=== PATIENT | female | born 1950 | race Caucasian/White ===

== ENCOUNTER → 2017-09-10 | Outpatient (CLI) | payer OTHER | END | disposition home or self-care (01) | LOC: KCIC US 09:43 | DX: Z12.31 Encounter for screening mammogram for malignant neoplasm of breast (principal); K29.50 Unspecified chronic gastritis without bleeding; I70.0 Atherosclerosis of aorta | CPT/HCPCS: 76700; 77063; 77067 ==

== ENCOUNTER → 2017-09-26 | Outpatient (CLI) | payer OTHER | END | disposition home or self-care (01) | LOC: KCIC US 13:29 | DX: N63.10 Unspecified lump in the right breast, unspecified quadrant (principal) | CPT/HCPCS: 76641 ==

== ENCOUNTER → 2018-09-11 | Outpatient (CLI) | payer OTHER ==
[2015-08-27 14:32] VITALS: BP 116/85
--- NOTE | 2018-09-11 09:48 | KCIC ---
Bilateral digital diagnostic mammogram and tomosynthesis History: Follow-up of probably benign right breast nodules only seen mammographically. Bilateral standard and implant displaced digital CC and MLO views were obtained with mammography and tomosynthesis. Computer aided detection was utilized with iCAD Second Look 7.2-H. Previous: Mammogram September 2017 and priors. The breast tissue is heterogeneously dense, which could obscure detection of small masses (Level 3 density). There are no suspicious masses, suspicious microcalcifications or areas of architectural distortion. Bilateral subglandular saline implants again demonstrated. Benign calcifications. At the right retroareolar breast posterior depth anterior of the implant there are 3 adjacent subcentimeter oval circumscribed nodules which are stable one of which demonstrates a fatty center consistent with a lymph node, all 3 are suspected to represent lymph nodes. IMPRESSION: No suspicious mammographic abnormality. Small right breast nodules, likely intramammary lymph nodes, stable from the study from one year ago, remain probably benign. Attention on follow up mammography in one year is advised to document 2 years of stability to confirm benignity. Patient information was entered into the [employer] reminder system with a target due date for the next screening mammogram. BI-RADS Category 3: Probably benign. Your mammogram demonstrates that you have dense breast tissue, which could hide abnormalities, and if you have other risk factors for breast cancer that have been identified, you might benefit from supplemental screening tests that may be suggested by your ordering physician. Dense breast tissue, in and of itself, is a relatively common condition. This information is not provided to cause undue concern, but rather to raise your awareness and to promote discussion with your physician regarding the presence of other risk factors, in addition to dense breast tissue. A report of your mammography results will be sent to you and your physician. You should contact your physician if you have any questions or concerns regarding this report. A mammogram does not have 100% sensitivity and therefore a negative imaging study should not delay further work up of a suspicious abnormality. "Our facility is accredited by the [employer] Mammography Program." Electronically signed by: Dillan Littlejohn MD (09/11/2018 9:46 AM) [id number]
--- NOTE | 2018-09-11 17:40 | KCIC ---
Indication: Postmenopausal screening for osteoporosis. COMPARISON: None available. Bone Density: -BMD: (g/cm2) - AP Spine Total (L1-L4).......... 1.230. - Total left Hip................. 0.891. T-Score: - AP Spine Total (L1-L4)......... 1.7. - Total left Hip................. -0.4. Z-Score: - AP Spine Total (L1-L4).......... 3.5. - Total left Hip................. 0.9. World Health Organization criteria for BMD interpretation classify patients as Normal (T-score at or above -1.0), Osteopenic (T-score between -1.0 and -2.5), or Osteoporotic (T-score at or below -2.5). Impression: 1. AP Spine Total L1-L4--- normal. 2. Total left Hip--- normal. Electronically signed by: Juan Moncada MD (09/11/2018 5:37 PM) [place] [id number]
== END | disposition home or self-care (01) ==
LOC: KCIC DEXA 08:42
DX: Z13.820 Encounter for screening for osteoporosis (principal); N63.10 Unspecified lump in the right breast, unspecified quadrant; Z78.0 Asymptomatic menopausal state; Z98.82 Breast implant status
CPT/HCPCS: 77066; 77080; G0279; 77062

== ENCOUNTER 2019-10-14 13:10 | Inpatient (IN) | payer MEDICARE, OTHER ==
[~2019-10-14] VITALS: Ht 157.5 cm; Wt 64.9 kg
--- NOTE | 2019-10-14 13:42 | PHYS DOC ---
Past Medical History Past Medical History: Asthma, COPD, Hypertension Past Surgical History: Other Additional Past Surgical Histo: benign tumor right wrist Smoking Status: Never Smoker Alcohol Use: Occasionally Drug Use: None General Adult EDM: Chief Complaint: COUGH HPI: HPI: 69-year-old female significant history of hypertension on losartan, non-oxygen dependent COPD, who presents for evaluation of 2 weeks of URI symptoms and dyspnea. Reports nonproductive cough and nasal congestion. No fevers chills. Associated dyspnea, worsened with exertion, but no chest pain. Review of Systems: Review of Systems: Gen: No fever, chills. Reports feeling generally unwell. Eyes: No blurred vision, diplopia. ENT: No sore throat. Reports congestion. CV: No CP, palpitations. Resp. Reports SOB, cough. GI: No abd pain, N/V. : No dysuria, hematuria. Neuro: No PAK, dizziness, weakness. MSK: No myalgia, arthralgia, back pain. Skin: No acute rash or lesion. Heart Score: Risk Factors: Risk Factors: DM, Current or recent (<one month) smoker, HTN, HLP, family history of CAD, obesity. Risk Scores: Score 0 - 3: 2.5% MACE over next 6 weeks - Discharge Home Score 4 - 6: 20.3% MACE over next 6 weeks - Admit for Clinical Observation Score 7 - 10: 72.7% MACE over next 6 weeks - Early Invasive Strategies Allergies: Allergies: Allergies Coded Allergies Type Severity Reaction Last Updated Verified Penicillins Allergy Intermediate 08/27/15 Yes Sulfa (Sulfonamide Antibiotics) Allergy Intermediate 08/27/15 Yes Physical Exam: PE: Gen: NAD. Head: NC/AT. Eyes: No scleral icterus. No conjunctival injection. ENT: MMM. Posterior OP clear. Neck: Supple. NT. CV: RRR. Peripheral pulses intact. Resp: Globally diminished aeration. Prolonged expiratory phase. Faint end expiratory wheezing. Abd: Soft. NT. ND. MSK: No peripheral cyanosis. No edema. No calf tenderness or asymmetry. Neuro: Awake and alert. Skin. Warm. Dry Psych: Appropriate mood & affect. EKG: EKG: EKG at 1323. Sinus rhythm. Heart rate 91. No STEMI. Interpreted by me. Radiology/Procedures: Radiology/Procedures: EXAM: Chest, single view. HISTORY: Shortness of air. COMPARISON: None. FINDINGS: A frontal view of the chest is obtained. There is no infiltrate, pleural effusion or pneumothorax. The heart is normal in size. IMPRESSION: No acute pulmonary finding. Electronically signed by: Katlin Ram MD (10/14/2019 2:07 PM) [id number] Course & Med Decision Making: Course & Med Decision Making Pertinent Labs and Imaging studies reviewed. (See chart for details) In summary, 69F with COPD, p/w acute SOA in the setting of 2 weeks of URI Sx. No known COVID contact. HDS. Pulse ox low 90s RA. Severely diminished globally with exp wheezing. Labs unrevealing. CXR clear. Received neb/solumedrol with some efficacy. Will admit. Rafael Disclaimer: Rafael Disclaimer: This electronic medical record was generated, in whole or in part, using a voice recognition dictation system. Departure Departure Impression: Primary Impression: COPD exacerbation Disposition: ADMITTED INPATIENT Admitting Physician: HORTENSIA (Beverley) Condition: STABLE Referrals: [facility]CEIV[facility] (PCP) Justicifation of Admission Dx: Justifications for Admission: Justification of Admission Dx: N/A OLGA PRECIADO DO Oct 14, 2019 13:42
[2019-10-14] MEDS ORDERED: methylPREDNISolone SOD SUCC PF 125 MG/2 ML VIAL. IV ONE (13:45)
[2019-10-14] MEDS ORDERED: IPRATRPIUM/ALBUTEROL 0.5/2.5MG 3 ML NEBU. NEB ONE (13:45)
[2019-10-14 13:56] LABS: BASO # 0.1 x10^3/uL (0.0-0.2); BASO % 1 % (0-3); EOS # 0.6 x10^3/uL (0.0-0.7); EOS % 8 % (0-3); HEMATOCRIT 42.8 % (36.0-47.0); HEMOGLOBIN 14.6 g/dL (12.0-15.5); LYMPH # 1.5 x10^3/uL (1.0-4.8); LYMPH % 18 % (24-48); MEAN CORPUSCULAR HEMOGLOBIN 31 pg (25-35); MEAN CORPUSCULAR HGB CONC 34 g/dL (31-37); MEAN CORPUSCULAR VOLUME 90 fL (79-100); MONO # 0.7 x10^3/uL (0.0-1.1); MONO % 9 % (0-9); NEUT # 5.4 x10^3/uL (1.8-7.7); NEUT % 64 % (31-73); PLATELET COUNT 361 x10^3/uL (140-400); RED BLOOD COUNT 4.73 x10^6/uL (3.50-5.40); RED CELL DISTRIBUTION WIDTH 12.9 % (11.5-14.5); WHITE BLOOD COUNT 8.5 x10^3/uL (4.0-11.0)
--- NOTE | 2019-10-14 14:09 | RAD ---
EXAM: Chest, single view. HISTORY: Shortness of air. COMPARISON: None. FINDINGS: A frontal view of the chest is obtained. There is no infiltrate, pleural effusion or pneumothorax. The heart is normal in size. IMPRESSION: No acute pulmonary finding. Electronically signed by: Katlin Ram MD (10/14/2019 2:07 PM) [id number]
[2019-10-14 14:15] LABS: CALCIUM 9.1 mg/dL (8.5-10.1); GFR 55.3; POTASSIUM 3.5 mmol/L (3.5-5.1)
[2019-10-14 14:20] LABS: ALBUMIN 3.7 g/dL (3.4-5.0); MAGNESIUM 1.9 mg/dL (1.8-2.4); TOTAL BILIRUBIN 0.3 mg/dL (0.2-1.0); TOTAL PROTEIN 7.5 g/dL (6.4-8.2)
[2019-10-14] MEDS ORDERED: hydrALAZINE 20 MG/ML VIAL. IVP ONE (14:45)
[2019-10-14] MEDS ORDERED: ONDANSETRON PF 4 MG/2 ML VIAL. IV PRN ×2 (15:15→15:30)
--- NOTE | 2019-10-14 15:20 | PDOC1 ---
History and Physical Date of Admission Date of Admission DATE: 10/14/19 TIME: 15:19 Identification/Chief Complaint Chief Complaint SOB Source Source: Patient History of Present Illness History of Present Illness Ms Agustin is a 69 yo F w/ PMHx non-oxygen dependent COPD, asthma, HTN who presents for evaluation cough and nasal congestion. No fevers chills. Associa ruiz dyspnea, worsened with exertion, but no chest pain. Has had shortness of breath, cough, and headache, worse on her right maxilla and frontal area for 3 weeks that has been progressive initially with clear nasal discharge and dry cough which has progressed to more thick white and now yellow discharge with wet cough. Her PCP has previously given her anoro and spiriva and recommended outpatient spirometry over the years. In fact, she takes some her 's inhalers and montelukast during allergy season with improvement most years and has not been previously hospitalized or intubated. Has no smoking history but has had chronic asthma and moderate-severe allergies, worse in the spring, she believes cottonwood allergies are the worst for her. She is having audible wheezing and conversational dyspnea with visible accessory respiratory muscle recruitment on examination. No COVID 19 exposures and she and her and daughter have been wearing masks and staying home during this pandemic. BP 231/99 in ED and she felt improved but still very dyspneic in ED after 1 hour nebulizer treatment. CXR reviewed with no acute abnormality. EKG Sinus rhythm. Heart rate 91. No STEMI. WBC 8, K 3.5, Mag 1.9. neg troponin. Admitted for further treatment of her respiratory distress. Past Medical History Cardiovascular: HTN Pulmonary: Asthma, COPD Past Surgical History Past Surgical History: Other (wrist surgery) Family History Family History: Asthma, Chronic Bronchitis, Hypertension Social History Smoke: No ALCOHOL: rare Drugs: None Current Problem List Problem List Problems Medical Problems: (1) COPD exacerbation Status: Acute Current Medications Current Medications Current Medications Albuterol/ Ipratropium (Duoneb) 3 ml 1X ONCE NEB Last administered on 10/14/19at 13:58; Start 10/14/19 at 13:45; Stop 10/14/19 at 13:57; Status DC Methylprednisolone Sodium Succinate (SOLU-Medrol 125MG VIAL) 125 mg 1X ONCE IV Last administered on 10/14/19at 14:08; Start 10/14/19 at 13:45; Stop 10/14/19 at 13:57; Status DC Hydralazine HCl (Apresoline Inj) 10 mg 1X ONCE IVP Last administered on 10/14/19at 14:49; Start 10/14/19 at 14:45; Stop 10/14/19 at 14:46; Status DC Ondansetron HCl (Zofran) 4 mg PRN Q8HRS PRN IV NAUSEA/VOMITING; Start 10/14/19 at 15:15; Stop 10/15/19 at 15:14 Allergies Allergies: Coded Allergies: Penicillins (Verified Allergy, Intermediate, 08/27/15) Sulfa (Sulfonamide Antibiotics) (Verified Allergy, Intermediate, 08/27/15) ROS General: YES: Fatigue, Malaise; No: Chills, Night Sweats, Appetite, Other PSYCHOLOGICAL ROS: No: Anxiety, Behavioral Disorder, Concentration difficultie, Decreased libido, Depression, Disorientation, Hallucinations, Hostility, Irri tablity, Memory difficulties, Mood Swings, Obsessive thoughts, Physical abuse, Sexual abuse, Sleep disturbances, Suicidal ideation, Other Eyes: No Blurry vision, No Decreased vision, No Double vision, No Dry eyes, No Excessive tearing, No Eye Pain, No Itchy Eyes, No Loss of vision, No Photophobia, No Scotomata, No Uses contacts, No Uses glasses, No Other HEENT: YES: Nasal congestion, Nasal discharge, Sinus pain; No: Heacaches, Visual Changes, Hearing change, Oral lesions, Sore Throat, Epistaxis, Sneezing, Snoring, Tinnitus, Vertigo, Vocal changes, Other ALLERGY AND IMMUNOLOGY: YES: Itchy/Watery Eyes, Nasal Congestion, Post Nasal Drip, Seasonal Allergies; No: Hives, Insect Bite Sensitivity, Other Hematological and Lymphatic: No: Bleeding Problems, Blood Clots, Blood Transfusions, Brusing, Night Sweats, Pallor, Swollen Lymph Nodes, Other ENDOCRINE: No: Breast Changes, Galactorrhea, Hair Pattern Changes, Hot Flashes, Malaise/lethargy, Mood Swings, Palpitations, Polydipsia/polyuria, Skin Changes, Temperature Intolerance, Unexpected Weight Changes, Other Breast: No New/Changing Breast Lumps, No Nipple changes, No Nipple discharge, No Other Respiratory: YES: Cough, Shortness of breath, SOB with excertion, Sputum Changes, Tachypnea, Wheezing; No: Hemoptysis, Orthopnea, Pleuritic Pain, Stridor, Other Cardiovascular: No Chest Pain, No Palpitations, No Orthopnea, No Paroxysmal Noc. Dyspnea, No Edema, No Lt Headedness, No Other Gastrointestinal: No Nausea, No Vomiting, No Abdominal Pain, No Diarrhea, No Constipation, No Melena, No Hematochezia, No Other Genitourinary: No Dysuria, No Frequency, No Incontinence, No Hematuria, No Retention, No Discharge, No Urgency, No Pain, No Flank Pain, No Other, No , No , No , No , No , No , No Musculoskeletal: No Gait Disturbance, No Joint Pain, No Joint Stiffness, No Joint Swelling, No Muscle Pain, No Muscular Weakness, No Pain In:, No Swelling In:, No Other Neurological: No Behavorial Changes, No Bowel/Bladder ControlChng, No Confusion, No Dizziness, No Gait Disturbance, No Headaches, No Impaired Coord/balance, No Memory Loss, No Numbness/Tingling, No Seizures, No Speech Problems, No Tremors, No Visual Changes, No Weakness, No Other Skin: No Dry Skin, No Eczema, No Hair Changes, No Lumps, No Mole Changes, No Mottling, No Nail Changes, No Pruritus, No Rash, No Skin Lesion Changes, No Other, No Acne Physical Exam General: Alert, Oriented X3, Cooperative, moderate distress HEENT: Atraumatic, PERRLA, EOMI, Mucous membr. moist/pink Lungs: Other (Diffuse wheezing, prolonged expiratory phase) Heart: S1S2, RRR, no thrills, no rubs, no gallops, no murmurs Abdomen: Normal bowel sounds, Soft, No tenderness, No hepatosplenomegaly, No masses Rectal Exam: not examined Extremities: No clubbing, No cyanosis, No edema, Normal pulses, No tenderness/swelling Skin: No rashes, No breakdown, No significant lesion Neuro: Normal gait, Normal speech, Strength at 5/5 X4 ext, Normal tone, Sensation intact, Cranial nerves 3-12 NL, Reflexes 2+ Psych/Mental Status: Mental status NL, Mood NL Vitals Vitals Vital Signs Date Time Temp Pulse Resp B/P (MAP) Pulse Ox O2 Delivery O2 Flow Rate FiO2 10/14/19 14:49 77 212/82 10/14/19 13:58 96 Room Air 10/14/19 13:15 98.9 14 98.9 Labs Labs Laboratory Tests Test 10/14/19 13:30 White Blood Count 8.5 x10^3/uL (4.0-11.0) Red Blood Count 4.73 x10^6/uL (3.50-5.40) Hemoglobin 14.6 g/dL (12.0-15.5) Hematocrit 42.8 % (36.0-47.0) Mean Corpuscular Volume 90 fL (79-100) Mean Corpuscular Hemoglobin 31 pg (25-35) Mean Corpuscular Hemoglobin Concent 34 g/dL (31-37) Red Cell Distribution Width 12.9 % (11.5-14.5) Platelet Count 361 x10^3/uL (140-400) Neutrophils (%) (Auto) 64 % (31-73) Lymphocytes (%) (Auto) 18 % (24-48) Monocytes (%) (Auto) 9 % (0-9) Eosinophils (%) (Auto) 8 % (0-3) Basophils (%) (Auto) 1 % (0-3) Neutrophils # (Auto) 5.4 x10^3/uL (1.8-7.7) Lymphocytes # (Auto) 1.5 x10^3/uL (1.0-4.8) Monocytes # (Auto) 0.7 x10^3/uL (0.0-1.1) Eosinophils # (Auto) 0.6 x10^3/uL (0.0-0.7) Basophils # (Auto) 0.1 x10^3/uL (0.0-0.2) Sodium Level 141 mmol/L (136-145) Potassium Level 3.5 mmol/L (3.5-5.1) Chloride Level 101 mmol/L (98-107) Carbon Dioxide Level 31 mmol/L (21-32) Anion Gap 9 (6-14) Blood Urea Nitrogen 10 mg/dL (7-20) Creatinine 1.0 mg/dL (0.6-1.0) Estimated GFR (Cockcroft-Gault) 55.3 BUN/Creatinine Ratio 10 (6-20) Glucose Level 97 mg/dL (70-99) Calcium Level 9.1 mg/dL (8.5-10.1) Magnesium Level 1.9 mg/dL (1.8-2.4) Total Bilirubin 0.3 mg/dL (0.2-1.0) Aspartate Amino Transf (AST/SGOT) 31 U/L (15-37) Alanine Aminotransferase (ALT/SGPT) 28 U/L (14-59) Alkaline Phosphatase 96 U/L (46-116) Troponin I Quantitative < 0.017 ng/mL (0.000-0.055) ZG-Lbi-O-Type Natriuretic Peptide 697 pg/mL (0-124) Total Protein 7.5 g/dL (6.4-8.2) Albumin 3.7 g/dL (3.4-5.0) Albumin/Globulin Ratio 1.0 (1.0-1.7) Laboratory Tests Test 10/14/19 13:30 White Blood Count 8.5 x10^3/uL (4.0-11.0) Red Blood Count 4.73 x10^6/uL (3.50-5.40) Hemoglobin 14.6 g/dL (12.0-15.5) Hematocrit 42.8 % (36.0-47.0) Mean Corpuscular Volume 90 fL (79-100) Mean Corpuscular Hemoglobin 31 pg (25-35) Mean Corpuscular Hemoglobin Concent 34 g/dL (31-37) Red Cell Distribution Width 12.9 % (11.5-14.5) Platelet Count 361 x10^3/uL (140-400) Neutrophils (%) (Auto) 64 % (31-73) Lymphocytes (%) (Auto) 18 % (24-48) Monocytes (%) (Auto) 9 % (0-9) Eosinophils (%) (Auto) 8 % (0-3) Basophils (%) (Auto) 1 % (0-3) Neutrophils # (Auto) 5.4 x10^3/uL (1.8-7.7) Lymphocytes # (Auto) 1.5 x10^3/uL (1.0-4.8) Monocytes # (Auto) 0.7 x10^3/uL (0.0-1.1) Eosinophils # (Auto) 0.6 x10^3/uL (0.0-0.7) Basophils # (Auto) 0.1 x10^3/uL (0.0-0.2) Sodium Level 141 mmol/L (136-145) Potassium Level 3.5 mmol/L (3.5-5.1) Chloride Level 101 mmol/L (98-107) Carbon Dioxide Level 31 mmol/L (21-32) Anion Gap 9 (6-14) Blood Urea Nitrogen 10 mg/dL (7-20) Creatinine 1.0 mg/dL (0.6-1.0) Estimated GFR (Cockcroft-Gault) 55.3 BUN/Creatinine Ratio 10 (6-20) Glucose Level 97 mg/dL (70-99) Calcium Level 9.1 mg/dL (8.5-10.1) Magnesium Level 1.9 mg/dL (1.8-2.4) Total Bilirubin 0.3 mg/dL (0.2-1.0) Aspartate Amino Transf (AST/SGOT) 31 U/L (15-37) Alanine Aminotransferase (ALT/SGPT) 28 U/L (14-59) Alkaline Phosphatase 96 U/L (46-116) Troponin I Quantitative < 0.017 ng/mL (0.000-0.055) PL-Llh-L-Type Natriuretic Peptide 697 pg/mL (0-124) Total Protein 7.5 g/dL (6.4-8.2) Albumin 3.7 g/dL (3.4-5.0) Albumin/Globulin Ratio 1.0 (1.0-1.7) VTE Prophylaxis Ordered VTE Prophylaxis Devices: No VTE Pharmacological Prophylaxi: Yes Assessment/Plan Assessment/Plan A/P: Shortness of breath - asthma/copd exacerbation. Steroids, nebs, singulair. Consult pulm. No COVID 19 risk factors, afebrile Right maxillary sinusitis - on examination, will place on doxycycline, steroids, nasal rinse. Likely has secondary bronchitis associated failed outpatient treatment for allergies likely had viral sinusitis initially that progressed Hypertensive urgency - likely exacerbated by respiratory distress, will give prn hydralazine, cont home meds Allergic rhinitis - seasonal, will place on antihistamine and singulair, steroids FEN - General diet PPX - lovenox FULL CODE Dispo - inpatient 2 midnights. Justicifation of Admission Dx: Justifications for Admission: Justification of Admission Dx: Yes Respiratory Failure: Severe Resp Distress Acute COPD Exacerbation: Acute COPD Exacerbation Hypertension: Cresendo Worsening of Sym VANIA LOWRY MD Oct 14, 2019 15:20
[2019-10-14] MEDS ORDERED: ACETAMINOPHEN 325 MG TABLET. PO PRN (15:30)
[2019-10-14] MEDS ORDERED: ALBUTEROL SULFATE 2.5 MG/3 ML NEBU. NEB PRN (15:30)
[2019-10-14] MEDS ORDERED: MAGNESIUM SULFATE 1GM 100 ML IV ONE (16:00)
[2019-10-14 16:13] VITALS: BP 208/117
[2019-10-14] MEDS ORDERED: PARO40TA3 PO (17:20)
[2019-10-14] MEDS ORDERED: LOSA1TAB22 PO (17:20)
[2019-10-14] MEDS ORDERED: FAMO20TA5 PO (17:20)
[2019-10-14] MEDS ORDERED: OMEP20CA16 PO (17:20)
[2019-10-14] MEDS ORDERED: ATOR20TA58 PO (17:20)
[2019-10-14 17:31] VITALS: BP 168/66
[2019-10-14 19:40] VITALS: BP 174/83
[2019-10-14] MEDS: BUDESONIDE 0.5 MG/2 ML NEBU. NEB SCH (19:56)
[2019-10-14] MEDS: IPRATRPIUM/ALBUTEROL 0.5/2.5MG 3 ML NEBU. NEB SCH (19:56)
[2019-10-14] MEDS ORDERED: hydrALAZINE 20 MG/ML VIAL. IVP PRN (20:15)
[2019-10-14] MEDS ORDERED: SODIUM CHL/ALOE VERA NASAL GEL 14.1GM TUBE. NS PRN (20:15)
[2019-10-14] MEDS: FLUTICASONE 50MCG/NASAL SPRAY 16GM BOTTLE. NS SCH (21:30)
[2019-10-14] MEDS: DOXYCYCLINE HYCLATE 100 MG TABLET PO SCH (21:30)
[2019-10-14] MEDS: FAMOTIDINE 20 MG TABLET. PO SCH (21:30)
[2019-10-14] MEDS: ENOXAPARIN 40 MG/0.4 ML SYRINGE. SQ SCH (21:31)
[2019-10-14] MEDS: MONTELUKAST SODIUM 10 MG TABLET. PO SCH (21:32)
[2019-10-14] MEDS: CETIRIZINE HCL 10 MG TABLET. PO SCH (21:32)
[2019-10-14] MEDS: methylPREDNISolone SOD SUCC PF 40 MG/ML VIAL. IV SCH (21:33)
[2019-10-14] MEDS: ZOLPIDEM 5 MG TABLET. PO PRN (23:07)
[2019-10-14] MEDS: guaiFENesin ORAL 200 MG/10 ML LIQUID. PO PRN (23:10)
[2019-10-14 23:19] VITALS: BP 135/72
[2019-10-15] VITALS (7 sets, daily range): BP systolic 148–178; BP diastolic 58–84
[2019-10-15] MEDS: methylPREDNISolone SOD SUCC PF 40 MG/ML VIAL. IV SCH ×3 (06:04→22:00)
[2019-10-15] MEDS: IPRATRPIUM/ALBUTEROL 0.5/2.5MG 3 ML NEBU. NEB SCH ×4 (07:28→20:07)
[2019-10-15] MEDS: BUDESONIDE 0.5 MG/2 ML NEBU. NEB SCH ×2 (07:28→20:07)
--- NOTE | 2019-10-15 07:55 | EKG ---
[facility] [address] [place] [address] Test Date: 2019-10-14 Test Time: 13:23:01 Pat Name: JAMES CISNEROS Department: Room: [facility] Gender: F Issuer: : [id number] Requested By: VANIA LOWRY Order Number: [id number] Reading MD: Jose Simposn Measurements Intervals [place] Rate: 91 P: 150 SC: 124 QRS: 51 QRSD: 78 T: 19 QT: 376 QTc: 464 Interpretive Statements SINUS RHYTHM Electronically Signed On 10-16-2019 16:28:20 CDT by Jose Simpson
[2019-10-15] MEDS: FLUTICASONE 50MCG/NASAL SPRAY 16GM BOTTLE. NS SCH (09:29)
[2019-10-15] MEDS: PANTOPRAZOLE 40 MG TABLET.DR. PO SCH (09:30)
[2019-10-15] MEDS: CETIRIZINE HCL 10 MG TABLET. PO SCH (09:30)
[2019-10-15] MEDS: LOSARTAN POTASSIUM 50 MG TABLET. PO SCH (09:30)
[2019-10-15] MEDS: PARoxetine 20 MG TABLET PO SCH (09:31)
[2019-10-15] MEDS: DOXYCYCLINE HYCLATE 100 MG TABLET PO SCH ×2 (09:31→21:15)
[2019-10-15] MEDS: ATORVASTATIN CALCIUM 20 MG TABLET PO SCH (09:31)
--- NOTE | 2019-10-15 11:01 | CONS ---
DATE OF CONSULTATION: PULMONARY CONSULTATION ATTENDING PHYSICIAN: Low Lowery. REASON FOR CONSULTATION: Dyspnea. HISTORY OF PRESENT ILLNESS: The patient is a 69-year-old who has been a smoker for 30+ years. She quit in 2008. She is not on home oxygen. She presented to the hospital with 3 weeks' history of shortness of breath. She said she also started to have a cough with some white sputum production. No fever, no chills. No chest pains. No headaches, no nausea, vomiting, no diarrhea, no dysuria. She has no known history of pulmonary embolism or DVT. She said she started using her 's oxygen. Her chest x-ray did not reveal any acute infiltrates. I have been asked to see her for further evaluation. PAST MEDICAL HISTORY: History of hypertension and COPD, unknown FEV1. PAST SURGICAL HISTORY: Wrist surgery. FAMILY HISTORY: Asthma, chronic bronchitis and hypertension. SOCIAL HISTORY: Quit tobacco in 2008, but before that smoked for 30+ years. ALLERGIES: PENICILLIN AND SULFA. REVIEW OF SYSTEMS: Twelve-point system obtained. Pertinent positives discussed in my history of present illness, otherwise noncontributory. All systems that were negative were reviewed as well. MEDICATIONS: All reviewed as listed in the MRAD including IV Solu-Medrol, doxycycline, Lovenox for DVT prophylaxis and DuoNebs. PHYSICAL EXAMINATION: VITAL SIGNS: Reviewed. Blood pressure on the high side, afebrile, pulse ox 93% on room air. NECK: Supple. LUNGS: With faint expiratory wheezes. CARDIOVASCULAR: Regular rate. ABDOMEN: Soft, nontender. EXTREMITIES: With no pitting edema. LABORATORY DATA: Reviewed. White cell count 8.5, hemoglobin 14.6 and platelets are 361. BUN 10, creatinine 1.0. IMPRESSION: 1. Acute exacerbation of chronic obstructive pulmonary disease triggered by acute bronchitis. 2. Suspect underlying chronic obstructive pulmonary disease from 30+ years of tobaccoism. 3. Acute bronchitis with no definite consolidation seen on the chest x-ray. RECOMMENDATIONS: 1. We will continue with present DuoNebs. 2. IV Solu-Medrol. 3. Lovenox for DVT prophylaxis. 4. Continue Pulmicort. 5. Anticipate hospitalization for 24-48 hours once bronchospasm is resolved. 6. Would recommend PFTs as an outpatient. 7. Discussed with the patient's and will follow along with you. MADELAINE CAIN MD DR: TONO/rebekah JOB#: [id number] / [id number]
--- NOTE | 2019-10-15 11:37 | PDOC ---
[facility] [facility] PROGRESS NOTE Chief Complaint Chief Complaint Respiratory failure with COPD exacerbation History of Present Illness History of Present Illness 10/15/2019 Patient seen and examined She remains somewhat short of breath and wants to see pulmonary I discussed with Dr. Garcia he is going to see her this afternoon Vitals/I&O Vitals/I&O: Vital Signs Date Time Temp Pulse Resp B/P (MAP) Pulse Ox O2 Delivery O2 Flow Rate FiO2 10/15/19 11:21 95 Room Air 10/15/19 09:30 109 123/71 10/15/19 07:47 98.4 18 98.4 I & O 10/14/19 10/14/19 10/15/19 15:00 23:00 07:00 Intake Total 600 ml 200 ml Balance 600 ml 200 ml Physical Exam General: Alert, Oriented X3, Cooperative, moderate distress Abdomen: Normal bowel sounds, Soft, No tenderness, No hepatosplenomegaly, No masses Extremities: No clubbing, No cyanosis, No edema, Normal pulses, No tenderness/swelling Skin: No rashes, No breakdown, No significant lesion Labs Labs: Laboratory Tests Test 10/14/19 13:30 White Blood Count 8.5 x10^3/uL (4.0-11.0) Red Blood Count 4.73 x10^6/uL (3.50-5.40) Hemoglobin 14.6 g/dL (12.0-15.5) Hematocrit 42.8 % (36.0-47.0) Mean Corpuscular Volume 90 fL (79-100) Mean Corpuscular Hemoglobin 31 pg (25-35) Mean Corpuscular Hemoglobin Concent 34 g/dL (31-37) Red Cell Distribution Width 12.9 % (11.5-14.5) Platelet Count 361 x10^3/uL (140-400) Neutrophils (%) (Auto) 64 % (31-73) Lymphocytes (%) (Auto) 18 % (24-48) Monocytes (%) (Auto) 9 % (0-9) Eosinophils (%) (Auto) 8 % (0-3) Basophils (%) (Auto) 1 % (0-3) Neutrophils # (Auto) 5.4 x10^3/uL (1.8-7.7) Lymphocytes # (Auto) 1.5 x10^3/uL (1.0-4.8) Monocytes # (Auto) 0.7 x10^3/uL (0.0-1.1) Eosinophils # (Auto) 0.6 x10^3/uL (0.0-0.7) Basophils # (Auto) 0.1 x10^3/uL (0.0-0.2) Sodium Level 141 mmol/L (136-145) Potassium Level 3.5 mmol/L (3.5-5.1) Chloride Level 101 mmol/L (98-107) Carbon Dioxide Level 31 mmol/L (21-32) Anion Gap 9 (6-14) Blood Urea Nitrogen 10 mg/dL (7-20) Creatinine 1.0 mg/dL (0.6-1.0) Estimated GFR (Cockcroft-Gault) 55.3 BUN/Creatinine Ratio 10 (6-20) Glucose Level 97 mg/dL (70-99) Calcium Level 9.1 mg/dL (8.5-10.1) Magnesium Level 1.9 mg/dL (1.8-2.4) Total Bilirubin 0.3 mg/dL (0.2-1.0) Aspartate Amino Transf (AST/SGOT) 31 U/L (15-37) Alanine Aminotransferase (ALT/SGPT) 28 U/L (14-59) Alkaline Phosphatase 96 U/L (46-116) Troponin I Quantitative < 0.017 ng/mL (0.000-0.055) WF-Aww-W-Type Natriuretic Peptide 697 pg/mL (0-124) Total Protein 7.5 g/dL (6.4-8.2) Albumin 3.7 g/dL (3.4-5.0) Albumin/Globulin Ratio 1.0 (1.0-1.7) Assessment and Plan Assessmemt and Plan Problems Medical Problems: (1) COPD exacerbation Status: Acute Shortness of breath - asthma/copd exacerbation. Steroids, nebs, singulair. Consult pulm. No COVID 19 risk factors, afebrile Right maxillary sinusitis - on examination, will place on doxycycline, steroids, nasal rinse. Likely has secondary bronchitis associated failed outpatient treatment for allergies likely had viral sinusitis initially that progressed Hypertensive urgency - likely exacerbated by respiratory distress, will give prn hydralazine, cont home meds Allergic rhinitis - seasonal, will place on antihistamine and singulair, steroids Comment Review of Relevant I have reviewed the following items shari (where applicable) has been applied. Medications: Current Medications Medications (Trade) Dose Ordered Sig/Mingo Route PRN Reason Start Time Stop Time Status Last Admin Dose Admin Albuterol/ Ipratropium (Duoneb) 3 ml 1X ONCE NEB 10/14/19 13:45 10/14/19 13:57 DC 10/14/19 13:58 Methylprednisolone Sodium Succinate (SOLU-Medrol 125MG VIAL) 125 mg 1X ONCE IV 10/14/19 13:45 10/14/19 13:57 DC 10/14/19 14:08 Hydralazine HCl (Apresoline Inj) 10 mg 1X ONCE IVP 10/14/19 14:45 10/14/19 14:46 DC 10/14/19 14:49 Magnesium Sulfate/ Dextrose 100 ml @ 100 mls/hr 1X ONCE IV 10/14/19 16:00 10/14/19 16:59 DC 10/14/19 17:05 Acetaminophen (Tylenol) 650 mg PRN Q4HRS PRN PO TEMP OVER 100.4F OR MILD PAIN 10/14/19 15:30 10/14/19 23:10 Guaifenesin (Robitussin) 200 mg PRN Q4HRS PRN PO COUGH 10/14/19 15:30 10/14/19 23:10 Enoxaparin Sodium (Lovenox 40mg Syringe) 40 mg Q24H SQ 10/14/19 21:00 10/14/19 21:31 Atorvastatin Calcium (Lipitor) 20 mg DAILY PO 10/15/19 09:00 10/15/19 09:31 Famotidine (Pepcid) 20 mg HS PO 10/14/19 21:00 10/14/19 21:30 Losartan Potassium (Cozaar) 100 mg DAILY PO 10/15/19 09:00 10/15/19 09:30 Pantoprazole Sodium (Protonix) 40 mg DAILYAC PO 10/15/19 07:30 10/15/19 09:30 Paroxetine HCl (Paxil) 40 mg DAILY PO 10/15/19 09:00 10/15/19 09:31 Albuterol/ Ipratropium (Duoneb) 3 ml RTQID NEB 10/14/19 20:00 10/15/19 11:20 Montelukast Sodium (Singulair) 10 mg QHS PO 10/14/19 21:00 10/14/19 21:32 Budesonide (Pulmicort) 0.5 mg RTBID NEB 10/14/19 20:00 10/15/19 07:28 Methylprednisolone Sodium Succinate (SOLU-Medrol 40MG VIAL) 40 mg Q8HRS IV 10/14/19 22:00 10/15/19 06:04 Zolpidem Tartrate (Ambien) 5 mg PRN QHS PRN PO INSOMNIA 10/14/19 20:15 10/14/19 23:07 Doxycycline Hyclate (Vibra-Tab) 100 mg BID PO 10/14/19 21:00 10/15/19 09:31 Fluticasone Propionate (Flonase) 2 spray DAILY NS 10/14/19 20:15 10/15/19 09:29 Hydralazine HCl (Apresoline Inj) 10 mg PRN Q4HRS PRN IVP ELEVATED BP, SEE COMMENTS 10/14/19 20:15 10/15/19 08:02 Cetirizine HCl (ZyrTEC) 10 mg DAILY PO 10/14/19 20:45 10/15/19 09:30 Justicifation of Admission Dx: Justifications for Admission: Justification of Admission Dx: Yes Respiratory Failure: Severe Resp Distress Acute COPD Exacerbation: Acute COPD Exacerbation Hypertension: Cresendo Worsening of Sym HELENA MEI III DO Oct 15, 2019 11:36
[2019-10-15] MEDS: guaiFENesin ORAL 200 MG/10 ML LIQUID. PO PRN ×2 (12:26→19:59)
[2019-10-15] MEDS ORDERED: amLODIPine BESYLATE 5 MG TABLET PO SCH (13:15)
--- NOTE | 2019-10-15 14:01 | NUR ---
SW following for discharge planning. SW reviewed chart and spoke with RN. SW met with pt. Pt's adult dtr at bedside. Pt lives in [place] with spouse and plans to return at discharge. Pt has a dx of COPD but is on room air and 02 is not needed at this time. Pt has a nebulizer at home per her report. SW to continue following for discharge planning.
--- NOTE | 2019-10-15 20:00 | NUR ---
Amlodipine 5 mg x 1 scheduled for 1300 (?), not given until now, [facility] but this rn administered it.
[2019-10-15] MEDS: ENOXAPARIN 40 MG/0.4 ML SYRINGE. SQ SCH (21:15)
[2019-10-15] MEDS: FAMOTIDINE 20 MG TABLET. PO SCH (21:15)
[2019-10-15] MEDS: MONTELUKAST SODIUM 10 MG TABLET. PO SCH (21:15)
[2019-10-15] MEDS: LACTOBACILLUS RHAMNOSUS GG 1 CAPSULE. PO SCH (21:15)
[2019-10-15] MEDS: ZOLPIDEM 5 MG TABLET. PO PRN (22:00)
[2019-10-16 03:15] VITALS: BP 152/73
[2019-10-16] MEDS: methylPREDNISolone SOD SUCC PF 40 MG/ML VIAL. IV SCH (06:33)
[2019-10-16] MEDS: IPRATRPIUM/ALBUTEROL 0.5/2.5MG 3 ML NEBU. NEB SCH (07:14)
[2019-10-16] MEDS: BUDESONIDE 0.5 MG/2 ML NEBU. NEB SCH (07:14)
[2019-10-16] MEDS: guaiFENesin ORAL 200 MG/10 ML LIQUID. PO PRN (07:16)
[2019-10-16 07:34] VITALS: BP 166/75
[2019-10-16 08:06] VITALS: BP 166/75
[2019-10-16] MEDS: PANTOPRAZOLE 40 MG TABLET.DR. PO SCH (08:06)
[2019-10-16] MEDS: LACTOBACILLUS RHAMNOSUS GG 1 CAPSULE. PO SCH (08:06)
[2019-10-16] MEDS: LOSARTAN POTASSIUM 50 MG TABLET. PO SCH (08:06)
[2019-10-16] MEDS: PARoxetine 20 MG TABLET PO SCH (08:07)
[2019-10-16] MEDS: DOXYCYCLINE HYCLATE 100 MG TABLET PO SCH (08:07)
[2019-10-16] MEDS: ATORVASTATIN CALCIUM 20 MG TABLET PO SCH (08:07)
[2019-10-16] MEDS: FLUTICASONE 50MCG/NASAL SPRAY 16GM BOTTLE. NS SCH (08:07)
[2019-10-16] MEDS: CETIRIZINE HCL 10 MG TABLET. PO SCH (08:07)
--- NOTE | 2019-10-16 09:50 | PDOC ---
PULMONARY PROGRESS NOTES Subjective Pt. is feeling better today, Denies SOA or cough Vitals Vital Signs Date Time Temp Pulse Resp B/P (MAP) Pulse Ox O2 Delivery O2 Flow Rate FiO2 10/16/19 08:06 100 166/75 10/16/19 08:00 Room Air 10/16/19 07:34 97.6 18 92 97.6 ROS: No Nausea, No Chest Pain, No Abdominal Pain, No Increase Cough General: Alert, Oriented X4 Lungs: Clear Cardiovascular: S1, S2 Abdomen: Soft, Non-tender Neuro Exam: Alert, Oriented Extremities: No Edema Skin: Warm, Dry Labs Laboratory Tests Test 10/14/19 13:30 White Blood Count 8.5 x10^3/uL (4.0-11.0) Red Blood Count 4.73 x10^6/uL (3.50-5.40) Hemoglobin 14.6 g/dL (12.0-15.5) Hematocrit 42.8 % (36.0-47.0) Mean Corpuscular Volume 90 fL (79-100) Mean Corpuscular Hemoglobin 31 pg (25-35) Mean Corpuscular Hemoglobin Concent 34 g/dL (31-37) Red Cell Distribution Width 12.9 % (11.5-14.5) Platelet Count 361 x10^3/uL (140-400) Neutrophils (%) (Auto) 64 % (31-73) Lymphocytes (%) (Auto) 18 % (24-48) Monocytes (%) (Auto) 9 % (0-9) Eosinophils (%) (Auto) 8 % (0-3) Basophils (%) (Auto) 1 % (0-3) Neutrophils # (Auto) 5.4 x10^3/uL (1.8-7.7) Lymphocytes # (Auto) 1.5 x10^3/uL (1.0-4.8) Monocytes # (Auto) 0.7 x10^3/uL (0.0-1.1) Eosinophils # (Auto) 0.6 x10^3/uL (0.0-0.7) Basophils # (Auto) 0.1 x10^3/uL (0.0-0.2) Sodium Level 141 mmol/L (136-145) Potassium Level 3.5 mmol/L (3.5-5.1) Chloride Level 101 mmol/L (98-107) Carbon Dioxide Level 31 mmol/L (21-32) Anion Gap 9 (6-14) Blood Urea Nitrogen 10 mg/dL (7-20) Creatinine 1.0 mg/dL (0.6-1.0) Estimated GFR (Cockcroft-Gault) 55.3 BUN/Creatinine Ratio 10 (6-20) Glucose Level 97 mg/dL (70-99) Calcium Level 9.1 mg/dL (8.5-10.1) Magnesium Level 1.9 mg/dL (1.8-2.4) Total Bilirubin 0.3 mg/dL (0.2-1.0) Aspartate Amino Transf (AST/SGOT) 31 U/L (15-37) Alanine Aminotransferase (ALT/SGPT) 28 U/L (14-59) Alkaline Phosphatase 96 U/L (46-116) Troponin I Quantitative < 0.017 ng/mL (0.000-0.055) RP-[id number]-Type Natriuretic Peptide 697 pg/mL (0-124) Total Protein 7.5 g/dL (6.4-8.2) Albumin 3.7 g/dL (3.4-5.0) Albumin/Globulin Ratio 1.0 (1.0-1.7) Medications Active Scripts Medications Dose Route/Sig Max Daily Dose Days Date Category Omeprazole 20 Mg Capsule.dr 1 Cap PO DAILY 10/14/19 Reported Atorvastatin Calcium 20 Mg Tablet 1 Tab PO DAILY 10/14/19 Reported Paroxetine Hcl 40 Mg Tablet 1 Tab PO DAILY 10/14/19 Reported Famotidine 20 Mg Tablet 20 Mg PO HS 10/14/19 Reported Losartan-Hctz 100-25 Mg Tab (Losartan/Hydrochlorothiazide) 1 Each Tablet 1 Tab PO DAILY 10/14/19 Reported Comments CXR 10/14/2019 IMPRESSION: No acute pulmonary finding. Impression . IMPRESSION: 1. Acute exacerbation of chronic obstructive pulmonary disease triggered by acute bronchitis-- improved , wheezing resolved 2. Suspect underlying chronic obstructive pulmonary disease from 30+ years of tobaccoism- educate on cessation importance 3. Acute bronchitis with no definite consolidation seen on the chest x-ray. Plan . RECOMMENDATIONS: continue bronchodilators will D/C on combivent IV Solu-Medrol change to medrol -dose pack Lovenox for DVT prophylaxis. Continue Pulmicort. Would recommend PFTs as an outpatient has follow in office 12/16/2019 Ok to D/C home today if ok with other consults-- RX provided sent on Pablo as well MADELAINE CAIN MD Oct 16, 2019 09:50
--- NOTE | 2019-10-16 10:39 | PDOC ---
[employer] [facility] PROGRESS NOTE Chief Complaint Chief Complaint Respiratory failure with COPD exacerbation History of Present Illness History of Present Illness 10/16/2019 Patient seen and examined She seems to be at her baseline Discussed with her daughter Discussed with RN Chart reviewed Plan is discharge I left prescriptions 10/15/2019 Patient seen and examined She remains somewhat short of breath and wants to see pulmonary I discussed with Dr. Garcia he is going to see her this afternoon Vitals/I&O Vitals/I&O: Vital Signs Date Time Temp Pulse Resp B/P (MAP) Pulse Ox O2 Delivery O2 Flow Rate FiO2 10/16/19 08:06 100 166/75 10/16/19 08:00 Room Air 10/16/19 07:34 97.6 18 92 97.6 I & O 10/15/19 10/15/19 10/16/19 15:00 23:00 07:00 Intake Total 500 ml 700 ml 240 ml Balance 500 ml 700 ml 240 ml Physical Exam General: Alert, Oriented X3, Cooperative, moderate distress Lungs: Clear Abdomen: Normal bowel sounds, Soft, No tenderness, No hepatosplenomegaly, No masses Extremities: No clubbing, No cyanosis, No edema, Normal pulses, No tenderness/swelling Skin: No rashes, No breakdown, No significant lesion Assessment and Plan Assessmemt and Plan Problems Medical Problems: (1) COPD exacerbation Status: Acute Discharge Comment Review of Relevant I have reviewed the following items shari (where applicable) has been applied. Medications: Current Medications Medications (Trade) Dose Ordered Sig/Mingo Route PRN Reason Start Time Stop Time Status Last Admin Dose Admin Lactobacillus Rhamnosus (Culturelle) 1 cap BID PO 10/15/19 21:00 10/16/19 08:06 Justicifation of Admission Dx: Justifications for Admission: Justification of Admission Dx: Yes Respiratory Failure: Severe Resp Distress Acute COPD Exacerbation: Acute COPD Exacerbation Hypertension: Cresendo Worsening of Sym HELENA MEI III DO Oct 16, 2019 10:39
--- NOTE | 2019-10-16 11:00 | NUR ---
Discharge Note: JAMES [address]OS[address] [place] [address] Discharge instructions and discharge home medications reviewed with Patient and a copy given. All questions have been answered and understanding verbalized. The following instructions and handouts were given: discharge instructions, new prescriptions, education and follow up recommendations. Discontinued lines and drains: Peripheral IV discontinued intact. Patient discharged to Home or Self Care with Spouse via Wheelchair off unit by this RN.
--- NOTE | 2019-10-16 11:28 | DS ---
DATE OF DISCHARGE: 10/16/2019 ADMISSION DIAGNOSIS: Respiratory failure secondary to chronic obstructive pulmonary disease. DISCHARGE DIAGNOSES: 1. Resolving respiratory failure. 2. Chronic obstructive pulmonary disease (she quit smoking 10 years ago). 3. History of asthma, hypertension and wrist surgery. CONSULTS: Dr. Wasserman. PROCEDURES: None. HOSPITAL COURSE: The patient is a pleasant middle-aged female who presented with respiratory failure secondary to COPD. I gave her steroids, breathing treatments and oxygen. Consult Dr. Wasserman. Today, I saw her and examined her. She is at her baseline. She wants to go home. We plan to discharge. DISPOSITION: Home. ACTIVITY: As tolerated. DIET: Low sodium. MEDICATIONS: Please see MRAD. TOTAL TIME: 34 minutes. HELENA MEI DO DR: JOSE LUIS/rebekah JOB#: [id number] / [id number]
--- NOTE | 2019-10-16 13:41 | NUR ---
SW following for discharge planning. SW reviewed chart and spoke with RN. Discharge orders received. Pt to return home with spouse. No additional SW needs at this time.
== END 2019-10-16 11:00 | disposition home or self-care (01) | DRG 190 ==
LOC: ER 13:10 → 6 SOUTH 14:59
PROVIDERS: ADMIT Internal Medicine; ATTEND Internal Medicine
DX: J44.1 Chronic obstructive pulmonary disease with (acute) exacerbation (principal); J96.90 Respiratory failure, unspecified, unspecified whether with hypoxia or hypercapnia; J45.901 Unspecified asthma with (acute) exacerbation; J44.0 Chronic obstructive pulmonary disease with (acute) lower respiratory infection; J20.9 Acute bronchitis, unspecified; I16.0 Hypertensive urgency; I10 Essential (primary) hypertension; F17.200 Nicotine dependence, unspecified, uncomplicated; J32.0 Chronic maxillary sinusitis; Z82.49 Family history of ischemic heart disease and other diseases of the circulatory system; Z82.5 Family history of asthma and other chronic lower respiratory diseases; Z79.899 Other long term (current) drug therapy; Z88.0 Allergy status to penicillin; Z88.2 Allergy status to sulfonamides
CPT/HCPCS: 36415; 71045; 80053; 83735; 83880; 84484; 85025; 93005; 94640; 94760; 96374; 96375; J0360; J1650; J2920; J2930; J3475; 99285-25; G0378; J7626

== ENCOUNTER → 2019-11-13 | Outpatient (CLI) | payer MEDICARE ==
[2019-10-16 08:06] VITALS: BP 166/75
[~2019-11-13] MED LIST: ATOR20TA58 PO; FAMO20TA5 PO; LOSA1TAB22 PO; OMEP20CA16 PO; PARO40TA3 PO
--- NOTE | 2019-11-13 15:35 | KCIC ---
EXAM: CHEST 2 VIEWS. HISTORY: Cough, asthma. COMPARISON: 10/14/2019. FINDINGS: Frontal and lateral views of the chest are obtained. There are relatively advanced emphysematous changes in the upper lobes. Calcified granulomas are noted in the bases. There are no confluent infiltrates. There is no pneumothorax or pleural effusion. The heart is not enlarged. Calcified lymph nodes likely reflect old granulomatous disease. There are atherosclerotic calcifications of the aorta. IMPRESSION: 1. Chronic obstructive pulmonary disease. No confluent infiltrates. Electronically signed by: Epifanio Garcia MD (11/13/2019 3:32 PM) [id number]
== END | disposition home or self-care (01) ==
LOC: KCIC 09:50
PROVIDERS: ATTEND Family Medicine
DX: J44.9 Chronic obstructive pulmonary disease, unspecified (principal); I70.0 Atherosclerosis of aorta; I89.8 Other specified noninfective disorders of lymphatic vessels and lymph nodes; J84.10 Pulmonary fibrosis, unspecified
CPT/HCPCS: 71046

== ENCOUNTER → 2019-12-25 | Outpatient (CLI) | payer MEDICARE ==
--- NOTE | 2019-12-25 16:48 | KCIC ---
PQRS Compliance Statement: One or more of the following individualized dose reduction techniques were utilized for this examination: 1. Automated exposure control 2. Adjustment of the mA and/or kV according to patient size 3. Use of iterative reconstruction technique CT CHEST WO CONTRAST Clinical Indication: Reason: BULLOUS LUNG DISEASE, PAST SMOKER, / Spl. Instructions: / History: Comparison: None. TECHNIQUE: Helical CT imaging of the chest is performed without IV contrast. Findings: The thyroid is symmetric. There are bilateral breast implants. Benign calcification in the right breast. There are a few subcentimeter mediastinal lymph nodes. There is no adenopathy. Limited evaluation of the keyana without IV contrast. Small calcified left hilar and subcarinal lymph nodes. The great vessels are normal caliber. There is two-vessel coronary artery disease. The cardiac size is normal, no pericardial effusion. There is no pleural effusion or pneumothorax. The central airways are patent. There is severe upper lobe centrilobular emphysema. There is a 6 x 4 x 13 mm noncalcified nodule in the right lung apex, image 13. Nodule could relate to right apical scarring as seen on coronal image 49. There is minimal atelectasis or scarring in the posterior right lower lobe. Tiny calcified granulomas in the left upper lung. Small calcified granuloma anterior left lower lobe. Minimal atelectasis or scarring in the inferior lingula. Incompletely seen fluid density at the sima hepatis on the last image could be portion of incompletely seen gallbladder. Calcified granulomas in the spleen. Atherosclerotic abdominal aorta. Thoracic spine alignment is maintained. There is degenerative endplate spurring. IMPRESSION: 1. There is severe upper lobe centrilobular emphysema. 2. There is a noncalcified nodule in the right lung apex, may be related to apical scarring. Recommend CT chest follow-up in 6 months to assess stability. Electronically signed by: Mick Hopson MD (12/25/2019 4:45 PM) [id number]
== END | disposition home or self-care (01) ==
LOC: KCIC CT 10:05
PROVIDERS: ATTEND Internal Medicine Critical Care Medicine
DX: J43.2 Centrilobular emphysema (principal); J84.10 Pulmonary fibrosis, unspecified; R91.1 Solitary pulmonary nodule; J98.4 Other disorders of lung; I25.10 Atherosclerotic heart disease of native coronary artery without angina pectoris
CPT/HCPCS: 71250

== ENCOUNTER → 2020-02-19 | Outpatient (CLI) | payer MEDICARE, OTHER ==
--- NOTE | 2020-02-19 15:35 | KCIC ---
Bilateral digital screening mammograms with 3-D tomosynthesis: Reason for examination: Routine screening. Comparison is made to previous studies dated back to 11/12/2012. Bilateral mammograms in CC and oblique projections were obtained with 2-D imaging and 3-D tomosynthesis imaging on a Siemens Inspiration unit and reviewed on the workstation. Interpretation was made with the benefit of CAD. The skin and nipples show no abnormalities. No abnormal axillary lymph nodes are seen. Bilateral breast implants remain present. The breast parenchyma is heterogeneously dense. (Breast density: Category C.) There are no dominant masses, suspicious calcifications or architectural distortion. Benign calcifications are present. Impression: No evidence of malignancy. Recommend routine screening. Your patient's mammogram demonstrates that she has dense breast tissue (breast density category C or D), which could hide abnormalities, and if she has other risk factors for breast cancer that have been identified, she might benefit from supplemental screening tests that may be suggested by you as her ordering physician. Dense breast tissue, in and of itself, is a relatively common condition. Therefore, this information is not provided to cause undue concern, but rather to raise your awareness and to promote discussion with your patient regarding the presence of other risk factors, in addition to dense breast tissue. Your patient's mammography results will be sent to her. BI-RAD Category 2: Benign. "Our facility is accredited by the [employer] Mammography Program." This patient's information has been entered into a reminder system for the patient to be notified with the results of her examination and a target date for the next mammogram. Electronically signed by: Zoe Mabry MD (02/19/2020 3:32 PM) [id number]
== END ==
LOC: KCIC MAMMO 09:36
PROVIDERS: ATTEND Family Medicine
DX: Z12.31 Encounter for screening mammogram for malignant neoplasm of breast (principal); N64.89 Other specified disorders of breast
CPT/HCPCS: 77063; 77067

== ENCOUNTER → 2020-06-10 | Outpatient (CLI) | payer MEDICARE ==
--- NOTE | 2020-06-10 13:04 | KCIC ---
PQRS Compliance Statement: One or more of the following individualized dose reduction techniques were utilized for this examinat ion: 1. Automated exposure control 2. Adjustment of the mA and/or kV according to patient size 3. Use of iterative reconstruction technique CT THORAX WO Clinical Indication: Reason: Follow up lung nodule. Comparison: CT chest without contrast December 25, 2019. TECHNIQUE: Helical CT imaging of the chest is performed without IV contrast. Findings: Thyroid is symmetric. There are bilateral breast implants. There is no adenopathy in the chest. Calci fied AP window and left hilar and subcarinal lymph nodes. Great vessels are normal caliber. There is coronary artery disease. Cardiac size is normal, no pericardial effusion. There is no pleural effusion. There is severe upper lobe centrilobular emphysema. Noncalcified nodule in the right lung apex is unchanged measuring 6 x 4 x 13 mm, well seen on coronal image 55. Redemons trated calcified granulomas. No lung consolidation. The visualized upper abdomen is unremarkable. There is degenerative spondylosis of the lower cervical spine. Thoracic spine alignment is maintained. IMPRESSION: 1. Interval stability of right apical noncalcified pulmonary nodule. 2. Severe upper lobe centrilobular emphysema. Electronically signed by: Mick Hopson MD (06/10/2020 1:02 PM) [id number]
== END ==
LOC: KCIC CT 08:11
PROVIDERS: ATTEND Internal Medicine Critical Care Medicine
DX: J43.2 Centrilobular emphysema (principal); R91.1 Solitary pulmonary nodule
CPT/HCPCS: 71250

== ENCOUNTER → 2021-01-11 | Outpatient (CLI) | payer MEDICARE ==
--- NOTE | 2021-01-11 16:09 | KCIC ---
Examination: CT chest without contrast HISTORY: History of lung nodule follow-up COMPARISON: 06/10/2020 TECHNIQUE: Axial CT images of chest were performed without contrast. Coronal and sagittal reformats a re performed Exposure: One or more of the following individualized dose reduction techniques were utilized for thi s examination: 1. Automated exposure control 2. Adjustment of the mA and/or kV according to patient size 3. Use of iterative reconstruction technique FINDINGS: The central airways are patent. Coronary artery calcifications identified. Moderate aortic atheroscle rosis. No radiologically significant mediastinal lymphadenopathy. Severe bilateral lung emphysematous changes. There is interval increase in size of the right upper lobe lung nodule measuring 1.2 cm (pr ior 6 mm). There is a new 6 mm nodule identified in the right lower lobe of the lung. The visualized noncontrasted liver, spleen, adrenals grossly appears unremarkable Bilateral breast prosthesis is identified. Moderate degenerative changes thoracic spine. IMPRESSION: 1. Interval increase in size of the right upper lobe lung nodule measuring 1.2 cm (prior 6 mm), susp icious for neoplasm.. There is a new 6 mm nodule identified in the right lower lobe of the lung. Cons ider further evaluation with PET/CT . 2. Severe bilateral lung emphysematous changes. 3. Coronary artery calcifications. Electronically signed by: Johny Rendon MD (01/11/2021 4:06 PM) [id number]
== END ==
LOC: KCIC CT 14:02
PROVIDERS: ATTEND Internal Medicine Critical Care Medicine
DX: R91.8 Other nonspecific abnormal finding of lung field (principal); I25.10 Atherosclerotic heart disease of native coronary artery without angina pectoris; J43.9 Emphysema, unspecified; I70.0 Atherosclerosis of aorta; M47.814 Spondylosis without myelopathy or radiculopathy, thoracic region; Z98.82 Breast implant status
CPT/HCPCS: 71250

== ENCOUNTER → 2021-01-20 | Outpatient (CLI) | payer MEDICARE ==
--- NOTE | 2021-01-20 13:35 | RAD ---
EXAM: Dual modality PET-CT Scan DATE: 01/20/2021 RADIOPHARMACEUTICAL: 15 mCi F-18 fluorodeoxyglucose (FDG) IV. CLINICAL HISTORY: Lung mass. COMPARISON: CT dated 01/11/2021. TECHNIQUE: Approximately 45 minutes after tracer administration, routine, attenuation-corrected Posit becka Emission Tomography (PET) images were obtained from the level of the base of the skull through th e level of the mid thighs. Tomographic reconstructions are reviewed in coronal, transaxial and sagitt al planes. Non-contrast CT imaging was performed for attenuation correction and localization purpose s only. These images do not constitute a diagnostic-quality CT examination and were not used to diag nose disease independently of the PET images. The blood glucose level was 102 mg/dL at the time of FDG administration. *One or more of the following individualized dose reduction techniques were utilized for this examina tion: 1. Automated exposure control. 2. Adjustment of the mA and/or kV according to patient size. 3. Use of iterative reconstruction technique. FINDINGS: There is mild increased radiotracer activity within SUV of 1.7 associated with a 1.3 cm spi culated nodule with adjacent architectural distortion and extension to the overlying pleura within th e right upper lobe. There is also mild radiotracer activity within SUV of 1.3 associated with a 1.3 c m pleural-based nodular opacity at the right lung apex and mild radiotracer activity within SUV of 1. 3 associated with a 5 mm nodule within the lateral right lower lobe. There is mild increased radiotra cer activity within maximum SUV of 2.6 associated with left axillary lymph nodes, the largest which m easures 1.3 cm. There is an adjacent large lymph node with thin cortex and benign fatty hilum. There is no significant radiotracer activity above the blood pool associated with a left upper lobe nodular opacity or mediastinal or hilar lymph nodes. There is no abnormal radiotracer activity inferior to t he hemidiaphragms. The CT portion of the exam demonstrates the aforementioned 1.3 cm nodule with elongated spiculated ma rgins within the right upper lobe. There is a 10 mm irregular nodular opacity within the medial left upper lobe. There is a tiny 2 mm nodule within the lateral left lower lobe.. There is a 5 mm nodule w ithin the right lower lobe. There is a 10 mm pleural-based nodule at the right lung apex with adjacen t pleural parenchymal scarring. There is emphysema. There is posterior dependent and basilar atelecta sis. The heart is normal in size. There is aortic and coronary artery atherosclerosis. There are calcified granulomas. No pathologically enlarged lymph node is seen. There are implanted breast prostheses. Th ere is trace fluid surrounding the fibrous capsules. No convincing extracapsular rupture is seen. The visualized portion of the brain are unremarkable. There is no neck lymphadenopathy. There is calcifi ed atherosclerotic plaque involving the carotid bifurcations. No hepatic lesion is seen. The collar, pancreas, spleen and adrenal glands are unremarkable. There is right greater than left renal cortical lobulation due to scarring. There is no hydronephrosis. There is moderate colonic stool. There are distal colonic diverticula. The bladder, uterus and left ovary are unremarkable. There is a suspected small right ovarian cyst measuring 10 mm. There is atheroscler otic plaque involving the abdominal aorta and aortic branch vessels. No pathologically enlarged lymph node is seen. There is degenerative change throughout the spine and both hips. There is no acute or suspicious osseous finding. IMPRESSION: 1. Mild radiotracer activity within SUV of 1.7 associated with a 1.3 cm spiculated nodule within the right upper lobe. Despite the relative low level of radiotracer activity, the morphology of this lesi on an interval increase in size compared to prior studies remains concerning for neoplasm. 2. Mild radiotracer activity within SUV of 1.3 associated with a 10 mm pleural-based right apical nod ular opacity and a 5 mm right lower lobe pulmonary nodule. These remain indeterminant. There is no ab normal radiotracer activity associated with a 10 mm nodular opacity within the medial left upper lobe , favoring benign pleural parenchymal scarring. 3. Mild radiotracer activity within SUV of 2.6 associated with nonenlarged left axillary lymph nodes. These are nonspecific and may be physiologic or reactive. No suspicious mediastinal or hilar lymph n ode is seen. 4. Pulmonary emphysema with apical pleural parenchymal scarring. 5. Please refer to the above report for additional findings regarding the non-PET portion of the exam . Electronically signed by: Katlin Ram MD (01/20/2021 1:33 PM) [id number]
== END ==
LOC: PETSC 09:50
PROVIDERS: ATTEND Internal Medicine Critical Care Medicine
DX: R91.8 Other nonspecific abnormal finding of lung field (principal); J43.9 Emphysema, unspecified; I70.0 Atherosclerosis of aorta; I25.10 Atherosclerotic heart disease of native coronary artery without angina pectoris; J98.11 Atelectasis; K57.30 Diverticulosis of large intestine without perforation or abscess without bleeding; L92.9 Granulomatous disorder of the skin and subcutaneous tissue, unspecified; M47.819 Spondylosis without myelopathy or radiculopathy, site unspecified; M16.0 Bilateral primary osteoarthritis of hip
CPT/HCPCS: 78815; A9552

== ENCOUNTER → 2021-04-21 | Outpatient (CLI) | payer MEDICARE ==
--- NOTE | 2021-04-21 11:59 | RAD ---
NM PET/CT SKULL BASE TO MID THIGH Clinical Indication: Pulmonary nodules. Comparison: January 20, 2021. Technique: Patient blood glucose at the time of injection is 90 mg/dL. The patient was administered 1 2.6 mCi of F-18 FDG intravenously. The patient rested quietly during a 60 minute uptake period. Then PET imaging from the skull base to the upper thighs was performed. A noncontrast CT was acquired over this same area. The CT is for attenuation correction and anatomic localization, it is not of diagnos tic quality and is not intended to diagnose disease independently of the PET. PQRS Compliance Statement: One or more of the following individualized dose reduction techniques were utilized for this examinat ion: 1. Automated exposure control 2. Adjustment of the mA and/or kV according to patient size 3. Use of iterative reconstruction technique Findings: Background: Mediastinal SUV max: 3.72 Liver SUV max: 5.2 Head and neck: There is no evidence of FDG-avid disease. Chest: Decreased size of left axillary lymph node measures 0.9 x 0.5 cm with resolved metabolic activity. No pathologic lymphadenopathy within the chest. Bilateral breast implants. Decreased size of spiculated the right upper lobar nodule measures 0.9 x 0.7 cm (series 3 image 60) c ompared to 1.3 x 0.9 cm. No significant metabolic activity. Persistent architectural distortion adjac ent to this region noted. Severe pulmonary emphysema. Decreased right lower lobe nodule measures 2 mm (image 70). Unchanged right apical pleural-based nodular opacity with metabolic activity below backg round. Unchanged left upper lobe pleural-based nodular opacity with metabolic activity below backgrou nd. No new pulmonary nodule. Abdomen and pelvis: The liver, spleen, adrenal glands, pancreas and gallbladder are unremarkable. Lobulated appearance th e kidneys with cortical defect, unchanged. No hydronephrosis. No renal calculus. Normal appearance of the urinary bladder. Normal appendix. No evidence of bowel obstruction. No pathologic lymphadenopathy. No ascites. Atherom atous plaque throughout the nonaneurysmal abdominal aorta and branch vessels. Musculoskeletal: Right anterior thigh intramuscular lipoma, unchanged. Multilevel cervical spondylosis. Multilevel lum bar spondylosis. Moderate rightward curvature the lumbar spine. IMPRESSION: 1. Decreased right upper lobe spiculated nodule with decreased metabolic activity. 2. Decreased right lower lobe pulmonary nodule. 3. Severe pulmonary emphysema. Electronically signed by: Ponce Richardson DO (04/21/2021 11:57 AM) [id number]
== END ==
LOC: PETSC 09:01
PROVIDERS: ATTEND Radiology Radiation Oncology
DX: R91.8 Other nonspecific abnormal finding of lung field (principal); J43.9 Emphysema, unspecified; I70.0 Atherosclerosis of aorta; D17.79 Benign lipomatous neoplasm of other sites; M47.812 Spondylosis without myelopathy or radiculopathy, cervical region; M47.816 Spondylosis without myelopathy or radiculopathy, lumbar region; M43.8X6 Other specified deforming dorsopathies, lumbar region
CPT/HCPCS: 78815; A9552